=== PATIENT | female | born 1985 | race Caucasian/White ===

== ENCOUNTER 2024-04-23 11:39 | Emergency (ER) | payer OTHER ==
[2024-04-23 11:56] VITALS: BP 131/87; PULSE 78; RESP 20; TEMP 98.4; BMI 29.8
[2024-04-23] MEDS ORDERED: FLUCONAZOLE 150 MG TABLET PO ONE (12:51)
[2024-04-23] MEDS: FLUCONAZOLE 150 MG TABLET PO ONE (13:05)
[2024-04-23 13:15] LABS: EPI CELLS 36 /uL (0-25.1); HYALINE CASTS 3 /uL (0-3.1); PH,URINE 5.5 (5.0-8.0); URINE APPEARANCE CLOUDY; URINE BACTERIA 1359 /uL (0-1359); URINE BILIRUBIN NEGATIVE (NEGATIVE); URINE COLOR YELLOW; URINE GLUCOSE (UA) NEGATIVE (NEGATIVE); URINE KETONE NEGATIVE (NEGATIVE); URINE LEUK ESTERASE 3+ (NEGATIVE); URINE NITRITE NEGATIVE (NEGATIVE); URINE PROTEIN TRACE (NEGATIVE); URINE RBC 16 /uL (0-23.9); URINE UROBILINOGEN 0.2 mg/dL (0.2-1.0); URINE WBC 947 /uL (0-25.8)
[2024-04-23 13:25] LABS: HCG,QUALITATIVE URINE Negative
== END 2024-04-23 14:14 | disposition home or self-care (01) ==
LOC: JER 11:39
DX: R10.2 Pelvic and perineal pain (principal); L29.2 Pruritus vulvae; R30.0 Dysuria; N89.8 Other specified noninflammatory disorders of vagina; N39.0 Urinary tract infection, site not specified; B37.31 Acute candidiasis of vulva and vagina
CPT/HCPCS: 81003; 84703; 87070; 87077; 87086; 87205; 99283-25